=== PATIENT | male | born 1940 | race Caucasian/White ===

== ENCOUNTER 2022-01-24 12:33 | Inpatient (IN) | payer MEDICARE, BC ==
[~2022-01-24] VITALS: Ht 175.3 cm; Wt 86.4 kg
[2022-01-24 13:55] LABS: BASOPHILS % (AUTO) 0.5 % (0-1); EOSINOPHILS % (AUTO) 0.9 % (0-6); HEMATOCRIT 27.7 % (42.0-52.0); LYMPHOCYTES # (AUTO) 0.8 X10'3 (1.1-4.8); LYMPHOCYTES % (AUTO) 25.2 % (21-51); MEAN CORPUSCULAR HEMOGLOBIN 27.7 PG (27.0-31.0); MEAN CORPUSCULAR HGB CONC 32.7 g/dL (33.0-36.5); MEAN CORPUSCULAR VOLUME 84.9 FL (78-98); MEAN PLATELET VOLUME 11.2 FL (7.4-10.4); MONOCYTES # (AUTO) 0.4 X10'3 (0-0.9); MONOCYTES % (AUTO) 13.5 % (2-12); NEUTROPHILS # (AUTO) 1.8 X10'3 (1.8-7.7); NEUTROPHILS % (AUTO) 59.9 % (42-75); RED BLOOD COUNT 3.26 X10'6 (4.70-6.10); RED CELL DISTRIBUTION WIDTH 15.1 % (11.5-14.5)
[2022-01-24 14:10] LABS: ALANINE AMINOTRANSFERASE 25 U/L (12-78); ALBUMIN 3.4 G/DL (3.4-5.0); ALKALINE PHOSPHATASE 38 IU/L (46-116); ANION GAP 11 (8-16); ASPARTATE AMINO TRANSFERASE 43 U/L (10-37); BILIRUBIN,TOTAL 0.7 MG/DL (0.1-1.0); BLOOD UREA NITROGEN 27 MG/DL (7-18); CALCIUM 8.5 MG/DL (8.5-10.1); CHLORIDE 105 MMOL/L (99-107); CREATININE 1.69 MG/DL (0.60-1.10); GLUCOSE 168 MG/DL (70-104); POTASSIUM 4.4 MMOL/L (3.5-5.1); SODIUM 139 MMOL/L (135-145); TOTAL CARBON DIOXIDE 23.3 MMOL/L (24-32); TOTAL PROTEIN 6.7 G/DL (6.4-8.2); eGFR 39 ML/MIN
[2022-01-24 14:13] LABS: PLATELET COUNT 46 X10'3 (140-440)
[2022-01-24 14:18] LABS: PLATELET ESTIMATE DECREASED; TOTAL CELLS COUNTED 100
[2022-01-24 14:19] LABS: ELLIPTOCYTES 1+; LARGE PLATELETS FEW; POIKILOCYTOSIS 1+
[2022-01-24 18:08] LABS: CLARITY,URINE CLEAR (Clear); COLOR,URINE YELLOW (Yellow); GLUCOSE, URINE NEGATIVE (Neg); KETONES,URINE NEGATIVE (Neg); LEUKOCYTE ESTERASE ,URINE NEGATIVE (Neg); NITRITES, URINE NEGATIVE (Neg); OCCULT BLOOD,URINE TRACE-INTACT (Neg); PH,URINE 5.5 (4.8-8.0); PROTEIN,URINE TRACE mg/dl (Neg); UROBILINOGEN,URINE 0.2 E.U/dL (0.2-1.0)
[2022-01-24 18:13] LABS: UA COLLECTION TYPE NON-SPECIFIED
[2022-01-24 18:19] LABS: BACTERIA,URINE NONE SEEN /HPF (Neg); RBC,URINE 0-2 /HPF (0-2); SQUAMOUS EPITHELIAL CELL,UR FEW /LPF (FEW); WBC,URINE NONE SEEN /HPF (0-4)
[2022-01-24] MEDS ORDERED: dextrose 50%-water 50ml dispensing syringe IV PRN ×2 (20:15)
[2022-01-24] MEDS ORDERED: ondansetron/PF 4mg/2ml inj IV PRN (20:15)
[2022-01-24] MEDS ORDERED: morphine 2 MG/ML inj. syringe IV PRN ×2 (20:15)
[2022-01-24] MEDS ORDERED: glucagon, human recombinant 1mg kit SUBCUT PRN (20:15)
[2022-01-24] MEDS ORDERED: acetaminophen 325mg tablet PO PRN ×2 (20:15)
[2022-01-24] MEDS ORDERED: magnesium hydroxide 30ml (MOM) UD suspension PO PRN (20:15)
[2022-01-24] MEDS ORDERED: DEXTROSE 15 GM of carb/4 tabs (each vial/BOTTLE has 4 tablets) PO PRN ×2 (20:15)
[2022-01-24] MEDS ORDERED: MESSAGE TO PHARMACY PO ONE (20:15)
[2022-01-24] MEDS ORDERED: mag hydrox/Alum hydrox/simeth 30ml oral suspension PO PRN (20:15)
[2022-01-24] MEDS ORDERED: insulin Lispro (HumaLOG) vial - multi-dose SQ SCH (20:15)
[2022-01-24 20:43] LABS: HEMOGLOBIN A1C 5.8 % (4.5-6.2)
[2022-01-24] MEDS: insulin glargine (Lantus) pen - multi-dose SQ SCH (21:00)
[2022-01-24] MEDS: furosemide 20 MG/2 ML vial IV SCH (21:29)
[2022-01-25 00:38] LABS: CLARITY,URINE CLEAR (Clear); COLOR,URINE YELLOW (Yellow); GLUCOSE, URINE NEGATIVE (Neg); KETONES,URINE NEGATIVE (Neg); LEUKOCYTE ESTERASE ,URINE NEGATIVE (Neg); NITRITES, URINE NEGATIVE (Neg); OCCULT BLOOD,URINE NEGATIVE (Neg); PH,URINE 5.5 (4.8-8.0); PROTEIN,URINE NEGATIVE (Neg); UROBILINOGEN,URINE 0.2 E.U/dL (0.2-1.0)
[2022-01-25 00:40] LABS: UA COLLECTION TYPE URINAL
[2022-01-25] MEDS ORDERED: ipratropium/albuterol 3ml nebule NEB PRN (04:10)
--- NOTE | 2022-01-25 05:00 | NUR ---
Patient in room ORTHO 4009. I have received report from SNEHA Yanez and had the opportunity to ask questions and assume patient care.
[2022-01-25 05:22] VITALS: BP 105/56
[2022-01-25 06:00] VITALS: BP 114/59
--- NOTE | 2022-01-25 06:39 | NUR ---
Problems reprioritized. Patient report given, questions answered & plan of care reviewed with SNEHA Blanc.
[2022-01-25 06:57] LABS: BASOPHILS % (AUTO) 0.5 % (0-1); EOSINOPHILS % (AUTO) 0.2 % (0-6); HEMATOCRIT 29.6 % (42.0-52.0); HEMOGLOBIN 9.8 g/dl (14.0-17.9); LYMPHOCYTES # (AUTO) 0.8 X10'3 (1.1-4.8); LYMPHOCYTES % (AUTO) 22.9 % (21-51); MEAN CORPUSCULAR HEMOGLOBIN 27.7 PG (27.0-31.0); MEAN CORPUSCULAR VOLUME 84.1 FL (78-98); MEAN PLATELET VOLUME 11.7 FL (7.4-10.4); MONOCYTES # (AUTO) 0.6 X10'3 (0-0.9); MONOCYTES % (AUTO) 15.5 % (2-12); NEUTROPHILS # (AUTO) 2.2 X10'3 (1.8-7.7); NEUTROPHILS % (AUTO) 60.9 % (42-75); RED BLOOD COUNT 3.52 X10'6 (4.70-6.10); RED CELL DISTRIBUTION WIDTH 14.5 % (11.5-14.5); WHITE BLOOD COUNT 3.6 X10'3 (4.5-11.0)
--- NOTE | 2022-01-25 06:59 | NUR ---
Patient in room ORTHO 4009. I have received report from SNEHA Hernandez and had the opportunity to ask questions and assume patient care.
[2022-01-25 07:10] LABS: PLATELET COUNT 50 X10'3 (140-440)
[2022-01-25 07:16] LABS: ALBUMIN 3.3 G/DL (3.4-5.0); ANION GAP 9 (8-16); BLOOD UREA NITROGEN 22 MG/DL (7-18); BUN/CREATININE RATIO 12.4 (5.4-32.0); CHLORIDE 104 MMOL/L (99-107); CREATININE 1.78 MG/DL (0.60-1.10); FERRITIN 204 NG/ML (26-388); GLUCOSE 158 MG/DL (70-104); POTASSIUM 3.7 MMOL/L (3.5-5.1); SODIUM 138 MMOL/L (135-145); TOTAL CARBON DIOXIDE 24.9 MMOL/L (24-32); eGFR 37 ML/MIN
[2022-01-25 09:11] LABS: % IRON SATURATION 4 % (11-46); IRON 12 UG/DL (53-167); TOTAL IRON BINDING CAPACITY 325 UG/DL (259-388)
[2022-01-25] MEDS: furosemide 20 MG/2 ML vial IV SCH (10:21)
[2022-01-25] MEDS: docusate sod 100mg capsule PO SCH ×2 (10:21→19:47)
[2022-01-25] MEDS ORDERED: levoFLOXACIN 750MG TABLET PO SCH (11:00)
[2022-01-25] MEDS ORDERED: SITA1TBM4 PO (11:48)
[2022-01-25] MEDS ORDERED: FINA5TAB11 PO (11:48)
[2022-01-25] MEDS ORDERED: RAMI5CAP65 PO (11:48)
[2022-01-25] MEDS ORDERED: FLO0.4C PO (11:48)
[2022-01-25] MEDS ORDERED: OXYC15TA PO (11:48)
[2022-01-25] MEDS ORDERED: ATOR40TA72 PO (11:48)
[2022-01-25] MEDS ORDERED: PREG150C46 PO (11:48)
[2022-01-25] MEDS ORDERED: APIX5TAB3 PO (11:48)
[2022-01-25] MEDS ORDERED: FENO200C22 PO (11:48)
--- NOTE | 2022-01-25 12:00 | NUR ---
Dr. Nix ordered discontinuation of ACHS.
--- NOTE | 2022-01-25 12:19 | NUR ---
DM Consult: Pt A1C 5.8% hx T2DM per EMR; A1C appropriate DM ed not indicated at this time. ERIC d/w RN regarding liberalizing to regular diet from current carb controlled if MD agreeable given A1C. Addendum: 01/25/22 at [address] Amended: Links added.
[2022-01-25 14:00] VITALS: BP 127/69
--- NOTE | 2022-01-25 16:34 | NUR ---
PAGER ID: [phone] MESSAGE: Delaney [phone] [facility] room 4002B wants to go AMA. Got him to wait until 1830 to see if echo results.
[2022-01-25 18:00] VITALS: BP 108/58
--- NOTE | 2022-01-25 18:13 | NUR ---
PAGER ID: [phone] MESSAGE: Delaney [phone] [facility] room 4006B convinced him to stay tonight. Will not leave AMA tonight.
--- NOTE | 2022-01-25 19:20 | NUR ---
Today I was off ratio with 5 patients including 2 on tele. For that reason medication administration and patient care were delayed.
--- NOTE | 2022-01-25 19:21 | NUR ---
Problems reprioritized. Patient report given, questions answered & plan of care reviewed with SNEHA Hernandez.
[2022-01-25] MEDS: insulin glargine (Lantus) pen - multi-dose SQ SCH (19:45)
--- NOTE | 2022-01-25 20:39 | NUR ---
Patient in room ORTHO 4008. I have received report from SNEHA Baltazar and had the opportunity to ask questions and assume patient care.
[2022-01-25] MEDS ORDERED: PREGABALIN PO SCH (21:00)
[2022-01-25] MEDS: pregabalin 75mg capsule PO SCH (21:00)
[2022-01-25] MEDS: oxyCODONE IR 5mg (immed. release) tablet PO SCH (21:03)
[2022-01-25 22:00] VITALS: BP 114/59
[2022-01-26 05:00] VITALS: BP 94/61
[2022-01-26 05:56] LABS: BASOPHILS % (AUTO) 0.3 % (0-1); EOSINOPHILS % (AUTO) 0.6 % (0-6); HEMATOCRIT 29.8 % (42.0-52.0); HEMOGLOBIN 9.9 g/dl (14.0-17.9); LYMPHOCYTES # (AUTO) 0.8 X10'3 (1.1-4.8); LYMPHOCYTES % (AUTO) 20.8 % (21-51); MEAN CORPUSCULAR HGB CONC 33.3 g/dL (33.0-36.5); MEAN PLATELET VOLUME 11.6 FL (7.4-10.4); MONOCYTES # (AUTO) 0.5 X10'3 (0-0.9); MONOCYTES % (AUTO) 11.5 % (2-12); NEUTROPHILS # (AUTO) 2.7 X10'3 (1.8-7.7); NEUTROPHILS % (AUTO) 66.8 % (42-75); RED BLOOD COUNT 3.55 X10'6 (4.70-6.10); RED CELL DISTRIBUTION WIDTH 14.7 % (11.5-14.5)
[2022-01-26 06:03] LABS: PLATELET COUNT 47 X10'3 (140-440)
[2022-01-26 06:05] LABS: ALBUMIN 3.1 G/DL (3.4-5.0); ANION GAP 11 (8-16); BLOOD UREA NITROGEN 24 MG/DL (7-18); BUN/CREATININE RATIO 14.5 (5.4-32.0); CHLORIDE 100 MMOL/L (99-107); CREATININE 1.65 MG/DL (0.60-1.10); GLUCOSE 174 MG/DL (70-104); POTASSIUM 3.5 MMOL/L (3.5-5.1); SODIUM 136 MMOL/L (135-145); eGFR 40 ML/MIN
--- NOTE | 2022-01-26 06:38 | NUR ---
Problems reprioritized. Patient report given, questions answered & plan of care reviewed with SNEHA Centeno.
--- NOTE | 2022-01-26 06:45 | NUR ---
Problems reprioritized. Patient report given, questions answered & plan of care reviewed with SNEHA Centeno.
--- NOTE | 2022-01-26 06:56 | NUR ---
Patient in room ORTHO 4008. I have received report from SNEHA Hernandez and had the opportunity to ask questions and assume patient care.
[2022-01-26 08:00] VITALS: BP 122/66
[2022-01-26] MEDS: lisinopril 10 MG tablet PO SCH (08:00)
[2022-01-26] MEDS ORDERED: non-formulary drug (Atorvastatin Calcium 1 TAB) PO SCH (08:00)
[2022-01-26] MEDS: pregabalin 75mg capsule PO SCH ×3 (08:01→20:18)
[2022-01-26] MEDS: docusate sod 100mg capsule PO SCH ×2 (08:01→20:18)
[2022-01-26] MEDS: tamsulosin 0.4mg capsule PO SCH (08:01)
[2022-01-26] MEDS: oxyCODONE IR 5mg (immed. release) tablet PO SCH ×3 (08:02→20:18)
[2022-01-26] MEDS: atorvastatin 20mg tablet PO SCH (08:02)
[2022-01-26] MEDS: finasteride 5mg tablet PO SCH (08:02)
[2022-01-26] MEDS: furosemide 20 MG/2 ML vial IV SCH (08:02)
[2022-01-26 10:00] VITALS: BP 119/55
[2022-01-26] MEDS ORDERED: apixaban 2.5mg tablet PO SCH (10:25)
[2022-01-26] MEDS: metoprolol succinate 25mg (24-HOUR) SR. Tablet PO SCH (13:36)
[2022-01-26] MEDS: benzonatate 100mg capsule PO PRN ×2 (13:37→22:33)
[2022-01-26 14:05] LABS: APTT 31 SECONDS (22-32)
[2022-01-26] MEDS: guaiFENesin/DM 10ml UD oral syrup PO PRN ×2 (14:43→20:20)
[2022-01-26 18:00] VITALS: BP 104/40
--- NOTE | 2022-01-26 18:00 | NUR ---
Patient in room ORTHO 4008. I have received report from SNEHA Mullins and had the opportunity to ask questions and assume patient care.
--- NOTE | 2022-01-26 18:14 | NUR ---
Problems reprioritized. Patient report given, questions answered & plan of care reviewed with SNEHA Hernandez.
[2022-01-26] MEDS: insulin glargine (Lantus) pen - multi-dose SQ SCH (19:48)
[2022-01-26 22:00] VITALS: BP 102/46
[2022-01-27] MEDS: guaiFENesin/DM 10ml UD oral syrup PO PRN (00:43)
--- NOTE | 2022-01-27 05:43 | NUR ---
Pt. did not void all night .I bladder scan at 0530 for 450ml.We got her up to BSC and she void 150 ml.
--- NOTE | 2022-01-27 05:54 | NUR ---
Problems reprioritized. Patient report given, questions answered & plan of care reviewed with SNEHA Pace.
[2022-01-27 06:00] VITALS: BP 112/63
[2022-01-27 06:14] LABS: BASOPHILS % (AUTO) 0.6 % (0-1); EOSINOPHILS # (AUTO) 0.1 X10'3 (0-0.9); EOSINOPHILS % (AUTO) 3.2 % (0-6); HEMATOCRIT 27.6 % (42.0-52.0); HEMOGLOBIN 9.2 g/dl (14.0-17.9); LYMPHOCYTES % (AUTO) 23.6 % (21-51); MEAN CORPUSCULAR HEMOGLOBIN 27.7 PG (27.0-31.0); MEAN CORPUSCULAR HGB CONC 33.4 g/dL (33.0-36.5); MEAN CORPUSCULAR VOLUME 82.8 FL (78-98); MONOCYTES # (AUTO) 0.4 X10'3 (0-0.9); MONOCYTES % (AUTO) 8.6 % (2-12); NEUTROPHILS # (AUTO) 2.7 X10'3 (1.8-7.7); PLATELET COUNT 53 X10'3 (140-440); RED BLOOD COUNT 3.34 X10'6 (4.70-6.10); RED CELL DISTRIBUTION WIDTH 14.8 % (11.5-14.5); WHITE BLOOD COUNT 4.2 X10'3 (4.5-11.0)
[2022-01-27 06:38] LABS: ALBUMIN 2.8 G/DL (3.4-5.0); ANION GAP 8 (8-16); BLOOD UREA NITROGEN 33 MG/DL (7-18); BUN/CREATININE RATIO 19.2 (5.4-32.0); CALCIUM 8.7 MG/DL (8.5-10.1); CHLORIDE 101 MMOL/L (99-107); CREATININE 1.72 MG/DL (0.60-1.10); GLUCOSE 146 MG/DL (70-104); POTASSIUM 3.6 MMOL/L (3.5-5.1); SODIUM 135 MMOL/L (135-145); TOTAL CARBON DIOXIDE 26.3 MMOL/L (24-32); eGFR 38 ML/MIN
[2022-01-27] MEDS: furosemide 20 MG/2 ML vial IV SCH (08:00)
[2022-01-27] MEDS: pregabalin 75mg capsule PO SCH ×3 (08:50→21:17)
[2022-01-27] MEDS: atorvastatin 20mg tablet PO SCH (08:51)
[2022-01-27] MEDS: docusate sod 100mg capsule PO SCH ×2 (08:51→21:17)
[2022-01-27] MEDS: oxyCODONE IR 5mg (immed. release) tablet PO SCH ×3 (08:51→21:00)
[2022-01-27] MEDS: tamsulosin 0.4mg capsule PO SCH (08:52)
[2022-01-27] MEDS: metoprolol succinate 25mg (24-HOUR) SR. Tablet PO SCH (08:52)
[2022-01-27] MEDS: lisinopril 10 MG tablet PO SCH (08:53)
[2022-01-27] MEDS: finasteride 5mg tablet PO SCH (08:53)
--- NOTE | 2022-01-27 09:05 | NUR ---
PAGER ID: [phone] MESSAGE: Eddie Pisano [phone] Lungs severe ex/in wheezes throughout. CXR? RT tx? IS and flutter? NO iron started.. cont Eliquis or no? Thank you, Katelynn [phone]
--- NOTE | 2022-01-27 09:21 | NUR ---
CXR taken- paged RT to treat.
[2022-01-27] MEDS: ipratropium/albuterol 3ml nebule NEB SCH ×4 (09:32→22:11)
[2022-01-27 10:00] VITALS: BP 105/54
[2022-01-27 10:53] VITALS: BP 97/42
--- NOTE | 2022-01-27 11:03 | NUR ---
Cardio DOCTOR OF NURSING PRACTICE aware jonatan held r/t low SBP.
[2022-01-27] MEDS: ferrous sulfate 325mg tablet PO SCH (13:11)
--- NOTE | 2022-01-27 13:45 | NUR ---
Bladder scanned. 384ml shown in bladder.
--- NOTE | 2022-01-27 18:06 | NUR ---
PAGER ID: [phone] MESSAGE: Eddie Pisano 4005 Electrical Manufacturing Technician recommending Eliquis 2.5mg BID. Did you want to start this tonight? Katelynn [phone]
--- NOTE | 2022-01-27 18:44 | NUR ---
Gave report to Ann Marie HOOVER.
--- NOTE | 2022-01-27 18:51 | NUR ---
Patient in room ORTHO 4008. I have received report from SNEHA FOSTER and had the opportunity to ask questions and assume patient care. Addendum: 01/27/22 at 1851 by Ann Marie Lawson RN Amended: Links added.
[2022-01-27 19:30] VITALS: BP 99/45
[2022-01-27] MEDS: apixaban 2.5mg tablet PO SCH (20:00)
[2022-01-27] MEDS: insulin glargine (Lantus) pen - multi-dose SQ SCH (21:00)
[2022-01-28] MEDS: ipratropium/albuterol 3ml nebule NEB SCH ×4 (02:17→16:25)
--- NOTE | 2022-01-28 05:02 | NUR ---
pt confused this am reorientated and repositioned in bed to comfort. did not drink much during the night exhausted after being up in the chair a good part of the day.
[2022-01-28 06:00] VITALS: BP 116/52
--- NOTE | 2022-01-28 06:17 | NUR ---
Problems reprioritized. Patient report given, questions answered & plan of care reviewed with Renato Pace. Addendum: 01/28/22 at 0618 by Ann Marie Lawson RN Amended: Links added.
[2022-01-28 06:33] LABS: ALBUMIN 2.7 G/DL (3.4-5.0); ANION GAP 9 (8-16); BLOOD UREA NITROGEN 41 MG/DL (7-18); BUN/CREATININE RATIO 21.5 (5.4-32.0); CALCIUM 8.9 MG/DL (8.5-10.1); CHLORIDE 99 MMOL/L (99-107); CREATININE 1.91 MG/DL (0.60-1.10); GLUCOSE 224 MG/DL (70-104); POTASSIUM 4.1 MMOL/L (3.5-5.1); SODIUM 134 MMOL/L (135-145); TOTAL CARBON DIOXIDE 25.9 MMOL/L (24-32); eGFR 34 ML/MIN
[2022-01-28 06:36] LABS: BASOPHILS % (AUTO) 0.6 % (0-1); EOSINOPHILS # (AUTO) 0.1 X10'3 (0-0.9); HEMATOCRIT 25.9 % (42.0-52.0); HEMOGLOBIN 8.6 g/dl (14.0-17.9); LYMPHOCYTES # (AUTO) 0.8 X10'3 (1.1-4.8); LYMPHOCYTES % (AUTO) 21.8 % (21-51); MEAN CORPUSCULAR HEMOGLOBIN 27.7 PG (27.0-31.0); MEAN CORPUSCULAR HGB CONC 33.3 g/dL (33.0-36.5); MEAN CORPUSCULAR VOLUME 83.2 FL (78-98); MEAN PLATELET VOLUME 10.6 FL (7.4-10.4); MONOCYTES # (AUTO) 0.4 X10'3 (0-0.9); NEUTROPHILS # (AUTO) 2.4 X10'3 (1.8-7.7); NEUTROPHILS % (AUTO) 64.6 % (42-75); PLATELET COUNT 63 X10'3 (140-440); RED BLOOD COUNT 3.11 X10'6 (4.70-6.10); RED CELL DISTRIBUTION WIDTH 14.4 % (11.5-14.5); WHITE BLOOD COUNT 3.8 X10'3 (4.5-11.0)
--- NOTE | 2022-01-28 06:36 | NUR ---
Problems reprioritized. Patient report given, questions answered & plan of care reviewed with SNEHA RAMIREZ. Addendum: 01/28/22 at 0637 by Ann Marie Lawson RN Amended: Links added.
--- NOTE | 2022-01-28 07:03 | NUR ---
Patient in room ORTHO 4008. I have received report from Catia HOOVER and had the opportunity to ask questions and assume patient care.
[2022-01-28] MEDS: oxyCODONE IR 5mg (immed. release) tablet PO SCH ×2 (08:00→14:27)
[2022-01-28] MEDS ORDERED: furosemide 20 MG/2 ML vial IV SCH (08:10)
--- NOTE | 2022-01-28 08:18 | NUR ---
Initial: Pt admitted w/ pancytopenia, systolic CHF, and CKD per EMR. Currently on Heart Healthy/Carb control diet w/ mostly 100% intake of meals meeting est nutrient needs at this time. Recommend removal of Carb control diet given A1c 5.8. LBM 6/3 receiving routine colace. Will continue to monitor and make recommendations as appropriate. Recs; 1. Continue Heart Healthy diet as tolerated; remove Carb control diet; A1c 5.8 2. Bowel care per rx 3. Scaled wts this admit Addendum: 01/28/22 at [address] Amended: Links added.
[2022-01-28] MEDS: metoprolol succinate 25mg (24-HOUR) SR. Tablet PO SCH (09:06)
[2022-01-28] MEDS: apixaban 2.5mg tablet PO SCH (09:07)
[2022-01-28] MEDS: pregabalin 75mg capsule PO SCH ×2 (09:07→14:27)
[2022-01-28] MEDS: lisinopril 10 MG tablet PO SCH (09:07)
[2022-01-28] MEDS: ferrous sulfate 325mg tablet PO SCH (09:07)
[2022-01-28] MEDS: atorvastatin 20mg tablet PO SCH (09:07)
[2022-01-28] MEDS: tamsulosin 0.4mg capsule PO SCH (09:07)
[2022-01-28] MEDS: docusate sod 100mg capsule PO SCH (09:08)
[2022-01-28] MEDS: finasteride 5mg tablet PO SCH (09:10)
[2022-01-28 10:00] VITALS: BP 100/44
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
[2022-01-28 14:00] VITALS: BP 110/44
[2022-01-28] MEDS ORDERED: DOCU100C40 PO (16:40)
[2022-01-28] MEDS ORDERED: FER325T PO (16:40)
[2022-01-28] MEDS ORDERED: FURO40TA4 PO (16:40)
[2022-01-28] MEDS ORDERED: METO-395 PO (16:40)
--- NOTE | 2022-01-28 17:45 | NUR ---
Patient discharged at this time. Patient and taught all new medications and new doses for eliquis. Patient and knows to follow-up with [facility] oncology and Dr. De Anda out patient.
== END 2022-01-28 17:30 | disposition home or self-care (01) | DRG 292 ==
LOC: ER 12:33 → ED HOLD 20:20 → ORTHO 4S 01-25 05:05
PROVIDERS: ADMIT Internal Medicine; ATTEND Family Medicine
DX: I50.23 Acute on chronic systolic (congestive) heart failure (principal); I42.0 Dilated cardiomyopathy; D61.818 Other pancytopenia; R04.2 Hemoptysis; E11.41 Type 2 diabetes mellitus with diabetic mononeuropathy; E11.22 Type 2 diabetes mellitus with diabetic chronic kidney disease; D46.9 Myelodysplastic syndrome, unspecified; E61.1 Iron deficiency; E78.5 Hyperlipidemia, unspecified; G89.29 Other chronic pain; M54.2 Cervicalgia; M54.50 Low back pain, unspecified; G25.0 Essential tremor; I25.10 Atherosclerotic heart disease of native coronary artery without angina pectoris; I48.0 Paroxysmal atrial fibrillation; N18.30 Chronic kidney disease, stage 3 unspecified; Z79.01 Long term (current) use of anticoagulants; Z79.84 Long term (current) use of oral hypoglycemic drugs; Z79.899 Other long term (current) drug therapy; Z80.1 Family history of malignant neoplasm of trachea, bronchus and lung; Z87.891 Personal history of nicotine dependence; Z95.3 Presence of xenogenic heart valve; Z95.5 Presence of coronary angioplasty implant and graft; Z98.1 Arthrodesis status; Z88.0 Allergy status to penicillin
CPT/HCPCS: 36415; 71045; 80048; 80053; 81001; 81003; 82728; 82948; 83036; 83540; 83550; 83880; 84484; 85007; 85025; 85610; 85730; 87070; 87077; 87081; 87185; 93005; 93306; 94640; 94667; 94668; 94760; 97110; 97116; 97161; 97530; 99285; A4349; A4615; G0378; J1815; J1940; J2270

== ENCOUNTER 2023-04-01 11:42 | Observation (INO) | payer OTHER ==
[2023-03-28 14:38] LABS: BASOPHILS % (AUTO) 1.2 % (0-1); EOSINOPHILS # (AUTO) 0.1 X10'3 (0-0.9); EOSINOPHILS % (AUTO) 2.3 % (0-6); HEMATOCRIT 23.3 % (42.0-52.0); HEMOGLOBIN 7.7 g/dl (14.0-17.9); LYMPHOCYTES # (AUTO) 1.1 X10'3 (1.1-4.8); LYMPHOCYTES % (AUTO) 40.9 % (21-51); MEAN CORPUSCULAR HEMOGLOBIN 27.2 PG (27.0-31.0); MEAN CORPUSCULAR HGB CONC 32.9 g/dL (33.0-36.5); MEAN CORPUSCULAR VOLUME 82.7 FL (78-98); MEAN PLATELET VOLUME 10.7 FL (7.4-10.4); MONOCYTES # (AUTO) 0.2 X10'3 (0-0.9); MONOCYTES % (AUTO) 7.6 % (2-12); NEUTROPHILS # (AUTO) 1.3 X10'3 (1.8-7.7); PLATELET COUNT 63 X10'3 (140-440); RED BLOOD COUNT 2.82 X10'6 (4.70-6.10); RED CELL DISTRIBUTION WIDTH 16.8 % (11.5-14.5); WHITE BLOOD COUNT 2.6 X10'3 (4.5-11.0)
[2023-03-28 14:52] LABS: APTT 24 SECONDS (22-32); INR 1.2 INR; PROTHROMBIN TIME 12.4 SECONDS (9.0-12.0)
[2023-03-28 14:56] LABS: ANION GAP 11 (8-16); BLOOD UREA NITROGEN 33 MG/DL (7-18); BUN/CREATININE RATIO 16.3 (10.0-20.0); CALCIUM 8.8 MG/DL (8.5-10.1); CHLORIDE 101 MMOL/L (99-107); CHOL/HDL RATIO 2.3 (0.00-4.99); CHOLESTEROL 97 MG/DL (0-200); CREATININE 2.02 MG/DL (0.60-1.10); GLUCOSE 111 MG/DL (70-104); HDL CHOLESTEROL 42 MG/DL (35-60); LDL CHOLESTEROL 37 MG/DL (50-100); POTASSIUM 3.8 MMOL/L (3.5-5.1); SODIUM 139 MMOL/L (135-145); TRIGLYCERIDES 148 MG/DL (20-135); eGFR 32 ML/MIN
[2023-03-28 15:28] LABS: ANISOCYTOSIS 1+; LARGE PLATELETS FEW; PLATELET ESTIMATE DECREASED; TOTAL CELLS COUNTED 100
[2023-03-28 15:29] LABS: BURR CELLS FEW; HYPOCHROMASIA 1+; POLYCHROMASIA 1+
[2023-04-01] VITALS (19 sets, daily range): BP systolic 92–117; BP diastolic 36–63; PULSE 54–71; RESP 12–18; TEMP 97.9–98.6; O2SAT 96–100
[~2023-04-01] VITALS: Ht 172.7 cm; Wt 86.0 kg
[~2023-04-01 11:42] MED LIST: APIX5TAB3 PO; ATOR40TA72 PO; DOCU100C40 PO; FENO200C22 PO; FER325T PO; FINA5TAB11 PO; FLO0.4C PO; METO-395 PO; OXYC15TA PO; PREG150C46 PO; RAMI5CAP65 PO; SITA1TBM4 PO
[2023-04-01] MEDS ORDERED: normal saline 1,000 ML IV SCH (12:10)
[2023-04-01] MEDS ORDERED: diphenhydrAMINE 25mg capsule PO PRN (12:10)
[2023-04-01] MEDS ORDERED: LORazepam 0.5 MG tablet PO PRN (12:10)
[2023-04-01 12:51] LABS: ALBUMIN 4.3 G/DL (3.4-5.0); ANION GAP 13 (8-16); BLOOD UREA NITROGEN 27 MG/DL (7-18); BUN/CREATININE RATIO 13.7 (10.0-20.0); CALCIUM 9.4 MG/DL (8.5-10.1); CHLORIDE 102 MMOL/L (99-107); CREATININE 1.97 MG/DL (0.60-1.10); GLUCOSE 98 MG/DL (70-104); POTASSIUM 3.8 MMOL/L (3.5-5.1); SODIUM 141 MMOL/L (135-145); TOTAL CARBON DIOXIDE 26.3 MMOL/L (24-32); eCRCL 28 ML/MIN; eGFR 33 ML/MIN
[2023-04-01] MEDS ORDERED: DIPH-735 PO (13:05)
[2023-04-01] MEDS ORDERED: LOSA25TA41 PO (13:05)
[2023-04-01] MEDS ORDERED: FURO20TA4 PO (13:05)
[2023-04-01] MEDS ORDERED: SEMA0.258 (13:05)
[2023-04-01] MEDS ORDERED: FENO200C25 PO (13:05)
[2023-04-01] MEDS ORDERED: MAGN250T11 PO (13:09)
[2023-04-01] MEDS ORDERED: vitamin d3 (13:10)
[2023-04-01] MEDS ORDERED: CALCIUM 600 MG (13:11)
[2023-04-01 14:03] LABS: HEMATOCRIT 21.2 % (42.0-52.0); HEMOGLOBIN 6.7 g/dl (14.0-17.9); MEAN CORPUSCULAR HEMOGLOBIN 26.3 PG (27.0-31.0); MEAN CORPUSCULAR VOLUME 82.9 FL (78-98); RED BLOOD COUNT 2.56 X10'6 (4.70-6.10); WHITE BLOOD COUNT 1.9 X10'3 (4.5-11.0)
[2023-04-01 14:04] LABS: INR 1.2 INR; PROTHROMBIN TIME 12.7 SECONDS (9.0-12.0)
[2023-04-01 14:04] LABS: MEAN CORPUSCULAR HGB CONC 31.8 g/dL (33.0-36.5); RED CELL DISTRIBUTION WIDTH 16.7 % (11.5-14.5)
[2023-04-01 14:06] LABS: LYMPHOCYTES % (AUTO) 42.6 % (21-51); NEUTROPHILS % (AUTO) 44.2 % (42-75); PLATELET COUNT 45 X10'3 (140-440)
[2023-04-01 14:07] LABS: BASOPHILS % (AUTO) 1.1 % (0-1); EOSINOPHILS % (AUTO) 2.4 % (0-6); LYMPHOCYTES # (AUTO) 0.8 X10'3 (1.1-4.8); MONOCYTES # (AUTO) 0.2 X10'3 (0-0.9); MONOCYTES % (AUTO) 9.7 % (2-12); NEUTROPHILS # (AUTO) 0.8 X10'3 (1.8-7.7)
--- NOTE | 2023-04-01 14:09 | NUR ---
Dr. Alcaraz notified of wbc 1.9 hgb 6.7 hct 21.2 plt 45
[2023-04-01] MEDS ORDERED: nitroGLYCERIN-Tridil 50MG/D5W 250 ML IV ONE (14:29)
[2023-04-01] MEDS ORDERED: fentaNYL/PF 50MCG/1 ML 2ML syringe ONE (14:30)
[2023-04-01] MEDS ORDERED: heparin 1,000unit/ml 10ml vial 10 ML ONE (14:30)
[2023-04-01] MEDS ORDERED: verapamil 2.5 mg/ml inj IV ONE (14:30)
[2023-04-01] MEDS ORDERED: midazolam 1 mg/ML 2ml injection ONE (14:30)
[2023-04-01] MEDS ORDERED: iohexol 350MG/ML 100ml bottle IV ONE (14:30)
[2023-04-01] MEDS ORDERED: LIDOcaine 1% (10mg/ml) 2ml vial ONE (14:30)
[2023-04-01 14:55] LABS: TOTAL CELLS COUNTED 100
[2023-04-01 14:56] LABS: PLATELET ESTIMATE DECREASED
[2023-04-01 14:58] LABS: ANISOCYTOSIS 1+
[2023-04-01] MEDS ORDERED: heparin 1,000 UNITS/NS 500ml 500 ML ONE (15:06)
--- NOTE | 2023-04-01 16:24 | NUR ---
Dr. Papo Alcaraz notified per blood bank that pt may have antibodies and the transfusion process may take longer that anticipated.
--- NOTE | 2023-04-01 17:38 | NUR ---
REPORT CALLED TO FLEX NURSE ON PCU
[2023-04-01] MEDS ORDERED: HYDROcodone/acetaminophen 10/325mg tab PO PRN (17:40)
[2023-04-01] MEDS ORDERED: HYDROcodone/acetaminophen 5mg/325mg tablet PO PRN (17:40)
--- NOTE | 2023-04-01 18:46 | NUR ---
Patient in room . I have received report from Suzanne (Short stay Nurse) and had the opportunity to ask questions and assume patient care.
--- NOTE | 2023-04-01 20:43 | NUR ---
Dressing applied to right wrist at this time. No signs of bleeding.
[2023-04-01 23:44] LABS: BASOPHILS % (AUTO) 1.1 % (0-1); EOSINOPHILS % (AUTO) 2.6 % (0-6); HEMATOCRIT 23.3 % (42.0-52.0); HEMOGLOBIN 7.6 g/dl (14.0-17.9); LYMPHOCYTES # (AUTO) 0.9 X10'3 (1.1-4.8); LYMPHOCYTES % (AUTO) 55.5 % (21-51); MEAN CORPUSCULAR HEMOGLOBIN 27.5 PG (27.0-31.0); MEAN CORPUSCULAR HGB CONC 32.7 g/dL (33.0-36.5); MEAN CORPUSCULAR VOLUME 83.9 FL (78-98); MEAN PLATELET VOLUME 11.2 FL (7.4-10.4); MONOCYTES # (AUTO) 0.2 X10'3 (0-0.9); MONOCYTES % (AUTO) 9.1 % (2-12); NEUTROPHILS # (AUTO) 0.5 X10'3 (1.8-7.7); NEUTROPHILS % (AUTO) 31.7 % (42-75); RED BLOOD COUNT 2.77 X10'6 (4.70-6.10); RED CELL DISTRIBUTION WIDTH 16.7 % (11.5-14.5); WHITE BLOOD COUNT 1.7 X10'3 (4.5-11.0)
[2023-04-01 23:47] LABS: PLATELET COUNT 41 X10'3 (140-440)
--- NOTE | 2023-04-01 23:58 | NUR ---
Called Dr. David Osorio cell phone [phone] and left message advising of lab results and advising of critical low plt count. (Pt had prior critical low). Order stated to call Dr. Hernandez when lab results were in to see if he wants to discharge.
--- NOTE | 2023-04-02 00:26 | NUR ---
Pt discharged at 0003. Pt left via wheelchair, accompanied by staff to POV with spouse. All paperwork signed, discharge instructions given to patient, all personal belongings left with pt.
[2023-04-02 00:36] LABS: TOTAL CELLS COUNTED 100
[2023-04-02 00:37] LABS: ANISOCYTOSIS 1+; PLATELET ESTIMATE DECREASED
[2023-04-02 00:38] LABS: ELLIPTOCYTES FEW
[2023-04-02 07:59] LABS: ISTAT SOURCE ARTERIAL
[2023-04-02 08:00] LABS: ISTAT Hct ART 18 %PCV (42-52)
[2023-04-02 08:01] LABS: ISTAT HGB ART 6.1 g/dl (14.0-17.9); ISTAT O2 SATURATION ARTERIAL 95 % (95-98)
[2023-04-02 08:02] LABS: ISTAT HGB MIX 6.5 g/dl (14.0-17.9); ISTAT Hct MIX 19 %PCV (42-52); ISTAT O2 SATURATION MIX VENOUS 58 % (60-80); ISTAT SOURCE MIXED VENOUS
[2023-04-17] MEDS ORDERED: METO-395 PO (04:08)
[2023-04-17] MEDS ORDERED: APIX2.5T PO (04:38)
[2023-04-27] MEDS ORDERED: PREG150C46 PO (09:51)
[2023-04-27] MEDS ORDERED: FERR324T4 PO (14:19)
== END 2023-04-02 00:20 | disposition home or self-care (01) ==
LOC: SSTAY O 11:42 → PCU 3S 15:30
PROVIDERS: ADMIT Student in an Organized Health Care Education/Training Program; ATTEND Student in an Organized Health Care Education/Training Program
DX: I35.0 Nonrheumatic aortic (valve) stenosis (principal); I25.10 Atherosclerotic heart disease of native coronary artery without angina pectoris; E78.5 Hyperlipidemia, unspecified; I13.0 Hypertensive heart and chronic kidney disease with heart failure and stage 1 through stage 4 chronic kidney disease, or unspecified chronic kidney disease; E11.22 Type 2 diabetes mellitus with diabetic chronic kidney disease; I50.30 Unspecified diastolic (congestive) heart failure; N18.30 Chronic kidney disease, stage 3 unspecified; I48.91 Unspecified atrial fibrillation; E78.00 Pure hypercholesterolemia, unspecified; I42.9 Cardiomyopathy, unspecified; K21.9 Gastro-esophageal reflux disease without esophagitis; G20 Parkinson's disease; Z88.0 Allergy status to penicillin; Z79.899 Other long term (current) drug therapy
CPT/HCPCS: 36415; 36430; 80048; 80061; 82803; 82948; 85014; 85025; 85610; 85730; 86870; 86880; 86885; 86900; 86901; 86922; 93005; 93457; A6258; G0378; J1644; J2250; J3010; J3490; J7030; J7040; P9016; Q0163; Q9967; 85007; 99152; 99153; A6402; C1751; C1894

== ENCOUNTER 2023-05-08 09:05 | Inpatient (IN) | payer OTHER ==
[2023-05-06 16:35] LABS: BASOPHILS % (AUTO) 1.1 % (0-1); EOSINOPHILS # (AUTO) 0.1 X10'3 (0-0.9); EOSINOPHILS % (AUTO) 1.8 % (0-6); LYMPHOCYTES # (AUTO) 0.7 X10'3 (1.1-4.8); LYMPHOCYTES % (AUTO) 17.5 % (21-51); MEAN CORPUSCULAR HEMOGLOBIN 25.2 PG (27.0-31.0); MEAN CORPUSCULAR HGB CONC 32.2 g/dL (33.0-36.5); MEAN CORPUSCULAR VOLUME 78.4 FL (78-98); MEAN PLATELET VOLUME 9.9 FL (7.4-10.4); MONOCYTES # (AUTO) 0.4 X10'3 (0-0.9); MONOCYTES % (AUTO) 9.4 % (2-12); NEUTROPHILS # (AUTO) 2.8 X10'3 (1.8-7.7); NEUTROPHILS % (AUTO) 70.2 % (42-75); PRE OP HEMATOCRIT 25.6 % (42.0-52.0); RED BLOOD COUNT 3.26 X10'6 (4.70-6.10); RED CELL DISTRIBUTION WIDTH 18.4 % (11.5-14.5)
[2023-05-06 16:58] LABS: PRE OP INR 1.1 INR; PRE OP PROTIME 11.6 SECONDS (9.0-12.0)
[2023-05-06 17:00] LABS: PRE OP HEMOGLOBIN 8.2 g/dL (14.0-17.9); PRE OP PLATELET COUNT 60 X10'3 (140-440)
[2023-05-06 17:08] LABS: ALBUMIN 3.1 G/DL (3.4-5.0); ALKALINE PHOSPHATASE 56 IU/L (46-116); BLOOD UREA NITROGEN 13 MG/DL (7-18); BUN/CREATININE RATIO 9.5 (10.0-20.0); CALCIUM 8.6 MG/DL (8.5-10.1); CHLORIDE 100 MMOL/L (99-107); CREATININE 1.37 MG/DL (0.60-1.10); PRE OP ALT 35 U/L (30-65); PRE OP ANION GAP 7 (8-16); PRE OP AST 40 U/L (10-37); PRE OP BILIRUB, TOTAL 0.7 MG/DL (0.0-1.0); PRE OP GLUCOSE 144 MG/DL (70-104); PRE OP POTASSIUM 3.7 MMOL/L (3.4-5.1); PRE OP SODIUM 134 MMOL/L (135-145); PRO BRAIN NATRIURETIC PEPTIDE 8045 PG/ML (0-450); TOTAL CARBON DIOXIDE 26.7 MMOL/L (24-32); TOTAL PROTEIN 6.2 G/DL (6.4-8.2); eGFR 50 ML/MIN
[2023-05-07] MEDS: phenylephrine inj 50 MG in normal saline 250ml IV solN IV SCH (11:20)
[2023-05-08] VITALS (32 sets, daily range): BP systolic 98–138; BP diastolic 50–69; PULSE 71–89; RESP 9–19; TEMP 97.5–98.5; O2SAT 92–100
[~2023-05-08] VITALS: Ht 175.3 cm; Wt 83.7 kg
[2023-05-08] MEDS: phenylephrine inj 50 MG in normal saline 250ml IV solN IV SCH (07:45)
[~2023-05-08 09:05] MED LIST changes: +APIX2.5T PO; -APIX5TAB3 PO; -DOCU100C40 PO; -FENO200C22 PO; -FER325T PO; +FERR324T4 PO; +FURO20TA4 PO; -METO-395 PO; +PREG150C PO; -PREG150C46 PO; -RAMI5CAP65 PO; -SITA1TBM4 PO; +aspirin 325mg tablet PO ONE; +famotidine 20mg tablet PO ONE; +nitroPRUSSIDE (NIPRIDE) (200MCG/ML) 100ML Drip IV SCH; +ondansetron/PF 4mg/2ml inj IV PRN; +protamine sulfate 10mg/ml inj. ONE; +ringers solution, lacted 1,000 ML IV SCH; +vancomycin 1,500 MG in NS 300ml IV soln IV ONE
[2023-05-08 10:26] LABS: BASOPHILS % (AUTO) 0.8 % (0-1); EOSINOPHILS # (AUTO) 0.1 X10'3 (0-0.9); EOSINOPHILS % (AUTO) 2.5 % (0-6); LYMPHOCYTES % (AUTO) 26.9 % (21-51); MEAN CORPUSCULAR HEMOGLOBIN 25.2 PG (27.0-31.0); MEAN CORPUSCULAR HGB CONC 32.1 g/dL (33.0-36.5); MEAN CORPUSCULAR VOLUME 78.7 FL (78-98); MEAN PLATELET VOLUME 9.6 FL (7.4-10.4); MONOCYTES # (AUTO) 0.2 X10'3 (0-0.9); MONOCYTES % (AUTO) 6.9 % (2-12); NEUTROPHILS # (AUTO) 2.3 X10'3 (1.8-7.7); NEUTROPHILS % (AUTO) 62.9 % (42-75); PRE OP HEMATOCRIT 25.1 % (42.0-52.0); PRE OP WHITE BLOOD COUNT 3.6 10'3 (4.8-10.8); RED BLOOD COUNT 3.19 X10'6 (4.70-6.10); RED CELL DISTRIBUTION WIDTH 18.9 % (11.5-14.5)
[2023-05-08 10:43] LABS: PRE OP PLATELET COUNT 50 X10'3 (140-440)
[2023-05-08 11:30] LABS: ANISOCYTOSIS 2+; ELLIPTOCYTES 1+; MICROCYTOSIS 1+; PLATELET ESTIMATE DECREASED; POIKILOCYTOSIS 1+
[2023-05-08 11:31] LABS: HYPOCHROMASIA 1+
[2023-05-08] MEDS ORDERED: morphine 4 MG/ML inj SYRINge IV PRN (11:35)
[2023-05-08] MEDS ORDERED: morphine 2 MG/ML inj. syringe IV PRN (11:35)
[2023-05-08] MEDS ORDERED: hydrALAZINE 20mg/ml inj. IV PRN ×2 (11:35→14:20)
[2023-05-08] MEDS ORDERED: ondansetron/PF 4mg/2ml inj IV PRN ×2 (11:35→14:20)
[2023-05-08] MEDS ORDERED: ringers solution, lacted 1,000 ML IV SCH (11:35)
[2023-05-08] MEDS ORDERED: LIDOcaine 1% (10mg/ml) 2ml vial ONE (12:02)
--- NOTE | 2023-05-08 12:02 | NUR ---
FIRST UNIT OF BLOOD HUNG AND SNEHA MCFADDEN ARRIVED TO TAKE PATIENT TO THE CRUSHING FOREMAN FOR HIS HEART VALVE. SNEHA MCFADDEN TO ASSESS FOR TRANSFUSION REACTIONS. PATIENT UNDER HER CARE TO TRANSPORT TO THE CRUSHING FOREMAN. 2 BAGS OF LABELED BELONGINGS TAKEN TO THE RR. Addendum: 05/08/23 at 1204 by Randall Haney - SNEHA HOOVER Amended: Links added.
[2023-05-08] MEDS ORDERED: iohexol 350MG/ML 100ml bottle IV ONE ×2 (12:25→13:46)
[2023-05-08] MEDS ORDERED: LIDOcaine 1% 30ml preserv. free vial ONE (12:25)
[2023-05-08] MEDS ORDERED: heparin 1,000 UNITS/NS 500ml 1,500 ML ONE (12:25)
[2023-05-08] MEDS ORDERED: heparin 1,000 UNITS/NS 500ml 500 ML ONE (12:39)
[2023-05-08] MEDS ORDERED: sevoflurane 250ml liquid IH ONE (12:40)
[2023-05-08] MEDS ORDERED: fentaNYL/PF 50MCG/1 ML 2ML syringe ONE (12:47)
[2023-05-08] MEDS ORDERED: midazolam 1 mg/ML 2ml injection ONE (12:48)
[2023-05-08] MEDS ORDERED: albumin (Human) 5% 250ml 250 ML IV ONE (12:58)
[2023-05-08] MEDS ORDERED: propofol inj 20 ML IV ONE (12:58)
[2023-05-08] MEDS ORDERED: WATER ONE (13:02)
[2023-05-08] MEDS ORDERED: DEXTROSE 5% ONE (13:02)
[2023-05-08] MEDS ORDERED: ePHEDrine 50MG/ML INJ. ONE (13:03)
[2023-05-08] MEDS ORDERED: heparin 1,000unit/ml 10ml vial 10 ML ONE (13:03)
[2023-05-08] MEDS ORDERED: ceFAZolin 1000mg inj ONE (13:06)
[2023-05-08] MEDS ORDERED: dexamethasone sod phosphate 4mg/ml inj. ONE (13:10)
[2023-05-08] MEDS ORDERED: ondansetron/PF 4mg/2ml inj ONE (13:11)
[2023-05-08] MEDS ORDERED: magnesium 2GM in 50ml NS 50 ML IV PRN (14:20)
[2023-05-08] MEDS ORDERED: acetaminophen 325mg tablet PO PRN (14:20)
[2023-05-08] MEDS ORDERED: proCHLORperazine 10 MG/2 ml inj IV PRN (14:20)
[2023-05-08] MEDS ORDERED: potassium CL 10mEq/100ml bag 100 ML IV PRN (14:20)
[2023-05-08] MEDS ORDERED: magnesium 4gm in 100ml NS 100 ML IV PRN (14:20)
[2023-05-08] MEDS ORDERED: potassium Cl 40MEQ/1/2NS 520ml 520 ML IV PRN (14:20)
[2023-05-08] MEDS ORDERED: HYDROcodone/acetaminophen 5mg/325mg tablet PO PRN (14:20)
[2023-05-08] MEDS ORDERED: diphenhydrAMINE 25mg capsule PO PRN (14:20)
[2023-05-08] MEDS ORDERED: potassium Cl 40MEQ/270ML bag 270 ML IV PRN (14:20)
[2023-05-08] MEDS ORDERED: ALPRAZolam 0.25mg tablet PO PRN (14:20)
[2023-05-08] MEDS ORDERED: docusate sod 100mg capsule PO PRN (14:20)
[2023-05-08] MEDS: normal saline 1000ml 1,000 ML IV SCH (14:20)
[2023-05-08] MEDS ORDERED: potassium Cl 20mEq/100mL bag 100 ML IV PRN (14:20)
[2023-05-08] MEDS ORDERED: pantoprazole 40mg Tablet.DR PO PRN (14:20)
[2023-05-08] MEDS ORDERED: labetalol 20mg/4ml (5mg/ml) syringe IV PRN (14:20)
[2023-05-08] MEDS ORDERED: potassium Cl 20 mEq SR tablet PO PRN (14:20)
--- NOTE | 2023-05-08 14:29 | NUR ---
Received from OR via HOSPITAL BED TO RR5 , accompanied by Anesthesiologist DR POOL and report given by Anesthesiolgist. PT PRESENTS WITH PIV 20G LEFT AC, 20G RIGHT FOREARM, ART LINE LEFT WRIST, BILATERAL GROIN DRESSING CDI, DORSALIS PEDUS PULSES PALPABLE, NUERO CHECK DOCUMENTED, LR RUNNING AT 100MLS/HR, VSS. Addendum: 05/08/23 at 1447 by Aminata Zacarias RN, RN Amended: Links added.
[2023-05-08] MEDS: sod chloride 0.9% 10ml flush syringe IV SCH (16:00)
--- NOTE | 2023-05-08 16:01 | NUR ---
Patient in room PAS IN 901. I have received report from vice president of talent acquisition and had the opportunity to ask questions and assume patient care. I forgot to ask for RN's name in recovery.
--- NOTE | 2023-05-08 16:59 | NUR ---
Report called to receiving nurse ZEV HOOVER. Transferred via HOSPITAL BED WITH TRANSPORT MONITOR TO ROOM 3016A. BED IN LOW LOCKED POSITION WITH CALL LIGHT IN REACH. PT HOOKED P TO MONITORS/TELE BOX. Belongings TAKEN TO ROOM 3016A. Special Issues communicated to receiving nurse. Addendum: 05/08/23 at 1737 by Aminata Zacarias RN, RN Amended: Links added.
--- NOTE | 2023-05-08 18:28 | NUR ---
Problems reprioritized. Patient report given, questions answered & plan of care reviewed with Jennifer HOOVER.
[2023-05-08] MEDS: vancomycin/NS 1 GM ADD-VANTAGE 250 ML IV SCH (19:49)
[2023-05-08] MEDS ORDERED: pregabalin 75mg capsule PO SCH (21:00)
[2023-05-08] MEDS: oxyCODONE IR 5mg (immed. release) tablet PO PRN (21:10)
[2023-05-09] VITALS (9 sets, daily range): BP systolic 105–129; BP diastolic 51–67; PULSE 18–80; RESP 10–15; TEMP 97.2–98.3; O2SAT 94–99
[2023-05-09] MEDS: sod chloride 0.9% 10ml flush syringe IV SCH ×2 (00:07→07:53)
[2023-05-09] MEDS: normal saline 1000ml 1,000 ML IV SCH (00:20)
[2023-05-09] MEDS: phenylephrine inj 50 MG in normal saline 250ml IV solN IV SCH (04:10)
--- NOTE | 2023-05-09 06:32 | NUR ---
Problems reprioritized. Patient report given, questions answered & plan of care reviewed with Dary
--- NOTE | 2023-05-09 07:05 | NUR ---
Patient in room PCU 3016. I have received report from SNEHA MOREIRA, and had the opportunity to ask questions and assume patient care.
[2023-05-09 07:30] LABS: BASOPHILS % (AUTO) 0.2 % (0-1); EOSINOPHILS % (AUTO) 0 % (0-6); HEMATOCRIT 23.1 % (42.0-52.0); HEMOGLOBIN 7.4 g/dl (14.0-17.9); LYMPHOCYTES # (AUTO) 0.4 X10'3 (1.1-4.8); LYMPHOCYTES % (AUTO) 13.8 % (21-51); MEAN CORPUSCULAR HEMOGLOBIN 25.3 PG (27.0-31.0); MEAN CORPUSCULAR HGB CONC 32.1 g/dL (33.0-36.5); MEAN CORPUSCULAR VOLUME 78.7 FL (78-98); MEAN PLATELET VOLUME 9.8 FL (7.4-10.4); MONOCYTES # (AUTO) 0.2 X10'3 (0-0.9); MONOCYTES % (AUTO) 6.9 % (2-12); NEUTROPHILS # (AUTO) 2.1 X10'3 (1.8-7.7); NEUTROPHILS % (AUTO) 79.1 % (42-75); RED BLOOD COUNT 2.94 X10'6 (4.70-6.10); RED CELL DISTRIBUTION WIDTH 18.1 % (11.5-14.5); WHITE BLOOD COUNT 2.6 X10'3 (4.5-11.0)
[2023-05-09] MEDS: vancomycin/NS 1 GM ADD-VANTAGE 250 ML IV SCH (07:41)
[2023-05-09] MEDS: oxyCODONE IR 5mg (immed. release) tablet PO PRN (07:44)
[2023-05-09] MEDS ORDERED: finasteride 5mg tablet PO SCH (08:00)
[2023-05-09] MEDS ORDERED: atorvastatin 20mg tablet PO SCH (08:00)
[2023-05-09] MEDS ORDERED: furosemide 20MG tablet PO SCH (08:00)
[2023-05-09] MEDS ORDERED: ferrous sulfate 325mg tablet PO SCH (08:00)
[2023-05-09] MEDS ORDERED: tamsulosin 0.4mg capsule PO SCH (08:00)
[2023-05-09 08:07] LABS: PLATELET COUNT 34 X10'3 (140-440)
--- NOTE | 2023-05-09 08:13 | NUR ---
DR. BLOCK NOTIFIED OF CRITICAL LAB: PLTS 34, AND LOW H&H 7.4/2.1. NO ORDERS AT THIS TIME.
[2023-05-09 08:20] LABS: ANISOCYTOSIS 2+; HYPOCHROMASIA 1+; MICROCYTOSIS 1+; PLATELET ESTIMATE DECREASED; TOTAL CELLS COUNTED 100
[2023-05-09 08:21] LABS: ELLIPTOCYTES 1+; POLYCHROMASIA 1+
[2023-05-09 08:23] LABS: ALANINE AMINOTRANSFERASE 23 U/L (12-78); ALBUMIN 2.6 G/DL (3.4-5.0); ALBUMIN/GLOBULIN RATIO 0.9 (1.1-1.5); ALKALINE PHOSPHATASE 43 IU/L (46-116); ANION GAP 8 (8-16); ASPARTATE AMINO TRANSFERASE 35 U/L (10-37); BILIRUBIN,TOTAL 0.8 MG/DL (0.1-1.0); BLOOD UREA NITROGEN 15 MG/DL (7-18); CALCIUM 8.2 MG/DL (8.5-10.1); CHLORIDE 107 MMOL/L (99-107); CREATININE 1.15 MG/DL (0.60-1.10); GLUCOSE 136 MG/DL (70-104); MAGNESIUM 1.7 MG/DL (1.5-2.4); POTASSIUM 4.3 MMOL/L (3.5-5.1); PRO BRAIN NATRIURETIC PEPTIDE 10287 PG/ML (0-450); SODIUM 139 MMOL/L (135-145); TOTAL CARBON DIOXIDE 24.1 MMOL/L (24-32); TOTAL PROTEIN 5.4 G/DL (6.4-8.2); eCRCL 50 ML/MIN; eGFR 61 ML/MIN
[2023-05-09 13:44] LABS: BASOPHILS % (AUTO) 0.4 % (0-1); EOSINOPHILS % (AUTO) 0 % (0-6); LYMPHOCYTES # (AUTO) 0.6 X10'3 (1.1-4.8); LYMPHOCYTES % (AUTO) 17.2 % (21-51); MEAN CORPUSCULAR HEMOGLOBIN 25.7 PG (27.0-31.0); MEAN CORPUSCULAR HGB CONC 31.9 g/dL (33.0-36.5); MEAN CORPUSCULAR VOLUME 80.5 FL (78-98); MEAN PLATELET VOLUME 9.6 FL (7.4-10.4); MONOCYTES # (AUTO) 0.2 X10'3 (0-0.9); MONOCYTES % (AUTO) 6.5 % (2-12); NEUTROPHILS # (AUTO) 2.4 X10'3 (1.8-7.7); NEUTROPHILS % (AUTO) 75.9 % (42-75); RED BLOOD COUNT 3.11 X10'6 (4.70-6.10); RED CELL DISTRIBUTION WIDTH 18.6 % (11.5-14.5); WHITE BLOOD COUNT 3.2 X10'3 (4.5-11.0)
[2023-05-09 13:48] LABS: PLATELET COUNT 35 X10'3 (140-440)
--- NOTE | 2023-05-09 13:55 | NUR ---
NOTIFIED ROB PALACIOS OF PT'S LABS: PLTS 35, H&H 04/18.
--- NOTE | 2023-05-09 15:03 | NUR ---
PT STABLE FOR DISCHARGE PER MD. DISCHARGE AND FOLLOW UP INSTRUCTIONS REVIEWED WITH THE PT AND HIS , APPROPRIATE PAPERWORK SIGNED, HIS SIGNING D/T TREMORS. BELONGINGS GATHERED AND RETURNED TO PT. PIVS REMOVED WITH TIPS INTACT. TELEBOX REMOVED. PT TRANSPORTED TO PRIVATE VEHICLE BY HOSPITAL STAFF. PT DISCHARGED TO HOME.
== END 2023-05-09 15:07 | disposition home or self-care (01) | DRG 266 ==
LOC: PAS IN 09:05 → PCU 3S 16:50
PROVIDERS: ADMIT Internal Medicine Cardiovascular Disease; ATTEND Internal Medicine Cardiovascular Disease
PROC: B41G1ZZ Fluoroscopy of Left Lower Extremity Arteries using Low Osmolar Contrast (ICD-10-PCS; 2023-05-08)
PROC: B41F1ZZ Fluoroscopy of Right Lower Extremity Arteries using Low Osmolar Contrast (ICD-10-PCS; 2023-05-08)
PROC: 03HY32Z Insertion of Monitoring Device into Upper Artery, Percutaneous Approach (ICD-10-PCS; 2023-05-08)
PROC: 30233N1 Transfusion of Nonautologous Red Blood Cells into Peripheral Vein, Percutaneous Approach (ICD-10-PCS; 2023-05-08)
PROC: 02RF38N Replacement of Aortic Valve with Zooplastic Tissue, using Rapid Deployment Technique, Percutaneous Approach (ICD-10-PCS; principal; 2023-05-08 12:40)
DX: T82.857A Stenosis of other cardiac prosthetic devices, implants and grafts, initial encounter (principal); Z00.6 Encounter for examination for normal comparison and control in clinical research program; I50.23 Acute on chronic systolic (congestive) heart failure; I13.0 Hypertensive heart and chronic kidney disease with heart failure and stage 1 through stage 4 chronic kidney disease, or unspecified chronic kidney disease; D61.818 Other pancytopenia; I35.0 Nonrheumatic aortic (valve) stenosis; Y83.1 Surgical operation with implant of artificial internal device as the cause of abnormal reaction of the patient, or of later complication, without mention of misadventure at the time of the procedure; I48.91 Unspecified atrial fibrillation; E11.22 Type 2 diabetes mellitus with diabetic chronic kidney disease; N40.0 Benign prostatic hyperplasia without lower urinary tract symptoms; D46.9 Myelodysplastic syndrome, unspecified; N18.30 Chronic kidney disease, stage 3 unspecified; Y92.89 Other specified places as the place of occurrence of the external cause; Z86.73 Personal history of transient ischemic attack (TIA), and cerebral infarction without residual deficits
CPT/HCPCS: 33361; 36415; 36430; 71045; 76937; 80053; 82948; 83735; 83880; 85007; 85008; 85025; 85347; 85610; 85730; 86870; 86880; 86885; 86900; 86901; 86902; 86905; 86922; 87081; 93005; 93308; A4615; A4618; A6258; A6449; C1756; C1760; C1769; C1894; G0378; J0690; J1100; J1644; J2250; J2370; J2405; J2704; J2720; J3010; J3370; J3490; J7030; J7040; J7050; J7060; J7120; P9016; P9045; Q9967